=== PATIENT | male | born 1955 | race Caucasian/White ===

== ENCOUNTER 2020-09-08 15:30 | Emergency (ER) | payer MEDICARE, OTHER ==
[~2020-09-08 15:30] MED LIST: ACTOS30 MG PO; ALDACTONE25 MG PO; AMIODARONE HCL200 MG PO; ASPIRIN EC81 MG PO; ATORVASTATIN CA20 MG PO; BREO ELLIPTA 21 EACH INH; BUPRENORPHIN-N1 EACH SL; CATAPRES 0.1MG0.1 MG PO; CEFUROXIME250 MG PO; DOXYCYCLINE MO100 M1 PO; ELIQUIS 5 MG TAB5 MG PO; ELIQUIS2.5 MG PO; ENTRESTO 49 MG1 EACH PO; FERROUS SULFAT325 M2 PO; FLONASE 0.05% N16 GM; FOLIC ACID 1 MG1 MG PO; INCRUSE ELLI62.5 MCG INH; ISORDIL TAB 3030 MG PO; JARDIANCE10 MG PO; LASIX40 MG PO; LEVAQUIN500 MG PO; LIPITOR TAB 1010 MG PO; LISINOPRIL5 MG PO; LOPRESSOR 25 MG25 MG PO; MYCOSTATIN100000 UTS PO; PLAVIX 75 MG TA75 MG PO; PRINIVIL20 MG PO; PROTONIX40 MG PO; SOLIQUA; SOLIQUA SC; TYLENOL WITH C1 EACH PO; VENTOLIN/PROVE0.5 ML INH; XULTOPHY 100 UNI3 ML SQ; ZAROXOLYN/DIUL2.5 MG PO; ZOLOFT100 MG PO
[2020-09-08 17:08] LABS: HEMOGLOBIN 12.1 gm/dl (14.0-17.5); RED BLOOD COUNT 4.7 M/UL (4.20-5.50); WHITE BLOOD COUNT 6.5 K/UL (4.5-11.0)
== END 2020-09-08 21:54 | disposition home or self-care (01) ==
LOC: ER1 15:30
PROVIDERS: Emergency Medicine
DX: K74.60 Unspecified cirrhosis of liver (principal); N28.9 Disorder of kidney and ureter, unspecified; I71.4 Abdominal aortic aneurysm, without rupture; I25.2 Old myocardial infarction; E11.9 Type 2 diabetes mellitus without complications; Z87.891 Personal history of nicotine dependence
CPT/HCPCS: 71045; 80053; 80074; 82962; 83690; 85025; 85610; 85730; 99285; C1729; Q9965

== ENCOUNTER 2020-10-11 12:53 | Emergency (ER) | payer MEDICARE, OTHER ==
[2020-10-11 14:59] LABS: BUN/CREATININE RATIO 32 (0-10)
[2020-10-11 15:18] LABS: HEMOGLOBIN 12.2 gm/dl (14.0-17.5); RED BLOOD COUNT 4.6 M/UL (4.20-5.50); WHITE BLOOD COUNT 10.6 K/UL (4.5-11.0)
== END 2020-10-11 16:30 | disposition home or self-care (01) ==
LOC: ER1 12:53
PROVIDERS: Physician Assistant
DX: K74.60 Unspecified cirrhosis of liver (principal); D69.6 Thrombocytopenia, unspecified; E11.22 Type 2 diabetes mellitus with diabetic chronic kidney disease; I10 Essential (primary) hypertension; F17.210 Nicotine dependence, cigarettes, uncomplicated; Z79.84 Long term (current) use of oral hypoglycemic drugs; Z95.5 Presence of coronary angioplasty implant and graft; Z95.0 Presence of cardiac pacemaker; Z85.819 Personal history of malignant neoplasm of unspecified site of lip, oral cavity, and pharynx; Z53.20 Procedure and treatment not carried out because of patient's decision for unspecified reasons
CPT/HCPCS: 71045; 80053; 82140; 83690; 85025; 85610; 85730; 99285; C1729